=== PATIENT | female | born 1945 | race Caucasian/White ===

== ENCOUNTER 2023-11-07 06:18 | Day surgery (SDC) | payer MEDICARE ==
[~2023-11-07] VITALS: Ht 165.1 cm; Wt 68.6 kg
[~2023-11-07 06:18] MED LIST: ADV250INH INH; MONT10TA97 PO; PHENYLEPHRINE 10% OPHTH SOL 5ML OS PRN; VENTAER INH
[2023-11-07] MEDS ORDERED: fentaNYL 100 MCG/2 ML INJECTION As Ordered ONE (07:01)
[2023-11-07] MEDS ORDERED: MIDAZOLAM INJ 2MG/2ML VIAL As Ordered ONE (07:01)
[2023-11-07] MEDS: OFLOXACIN 0.3 % (OCUFLOX) OPTH SOL 5ML OS ONE (07:03)
[2023-11-07] MEDS: ATROPINE SULFATE 1% OPHTH SOLN 2ML BTL OS SCH (07:03)
[2023-11-07] MEDS: PHENYLEPHRINE 2.5% OPHTH SOL 2ML OS SCH (07:03)
[2023-11-07] MEDS: LIDOCAINE 3.5 % 1ML OPHTH TOPICAL GEL OU ONE (07:03)
[2023-11-07] MEDS: TROPICAMIDE 1% OPHTH SOLN 15ML OS SCH (07:04)
[2023-11-07] MEDS ORDERED: POVIDONE-IODINE 5% OPHTH PREP SOL 30ML As Ordered ONE (09:12)
[2023-11-07] MEDS: BSS IRRIG/VANCO(10MG)/TOBRA(5MG)/EPINEPH(1:1000-0.5CC)500ML BAG-ORONLY As Ordered ONE (09:46)
[2023-11-07] MEDS: LIDOCAINE 1% SDV 5ML VIAL As Ordered ONE (09:46)
[2023-11-07] MEDS: CEFUROXIME 1MG/0.1ML INTRACAMERAL INJ As Ordered ONE (09:51)
[2023-11-07 09:58] VITALS: BP 128/67; TEMP 97.2; O2SAT 96
== END 2023-11-07 10:28 | disposition home or self-care (01) ==
LOC: M SDC 06:18
PROVIDERS: ATTEND Ophthalmology
DX: H25.12 Age-related nuclear cataract, left eye (principal); K21.9 Gastro-esophageal reflux disease without esophagitis; J45.909 Unspecified asthma, uncomplicated; Z88.5 Allergy status to narcotic agent; Z79.899 Other long term (current) drug therapy; Z79.51 Long term (current) use of inhaled steroids
CPT/HCPCS: 66984; J0697; J2250; J3010; V2632

== ENCOUNTER 2023-11-21 06:38 | Day surgery (SDC) | payer MEDICARE ==
[~2023-11-21] VITALS: Ht 165.1 cm; Wt 68.9 kg
[~2023-11-21 06:38] MED LIST changes: +PHENYLEPHRINE 10% OPHTH SOL 5ML OD PRN; -PHENYLEPHRINE 10% OPHTH SOL 5ML OS PRN
[2023-11-21] MEDS: PHENYLEPHRINE 2.5% OPHTH SOL 2ML OD SCH (07:06)
[2023-11-21] MEDS: TROPICAMIDE 1% OPHTH SOLN 15ML OD SCH (07:07)
[2023-11-21] MEDS: ATROPINE SULFATE 1% OPHTH SOLN 2ML BTL OD SCH (07:08)
[2023-11-21] MEDS: LIDOCAINE 3.5 % 1ML OPHTH TOPICAL GEL OU ONE (07:08)
[2023-11-21] MEDS: OFLOXACIN 0.3 % (OCUFLOX) OPTH SOL 5ML OD ONE (07:08)
[2023-11-21] MEDS: BSS IRRIG/VANCO(10MG)/TOBRA(5MG)/EPINEPH(1:1000-0.5CC)500ML BAG-ORONLY As Ordered ONE (08:30)
[2023-11-21] MEDS: LIDOCAINE 1% SDV 5ML VIAL As Ordered ONE (08:31)
[2023-11-21] MEDS: CEFUROXIME 1MG/0.1ML INTRACAMERAL INJ As Ordered ONE (08:31)
[2023-11-21] MEDS ORDERED: MIDAZOLAM INJ 2MG/2ML VIAL As Ordered ONE (08:38)
[2023-11-21] MEDS ORDERED: fentaNYL 100 MCG/2 ML INJECTION As Ordered ONE (08:38)
[2023-11-21 08:40] VITALS: BP 136/75; TEMP 97.5; O2SAT 95
== END 2023-11-21 09:03 | disposition home or self-care (01) ==
LOC: M SDC 06:38
PROVIDERS: ATTEND Ophthalmology
DX: H25.11 Age-related nuclear cataract, right eye (principal); K21.9 Gastro-esophageal reflux disease without esophagitis; J45.909 Unspecified asthma, uncomplicated; Z79.51 Long term (current) use of inhaled steroids; Z79.899 Other long term (current) drug therapy; Z88.5 Allergy status to narcotic agent
CPT/HCPCS: 66984; J0697; J2250; J3010; V2632